=== PATIENT | male | born 1980 | race Hispanic/Latino ===

== ENCOUNTER 2018-03-09 01:56 | Emergency (ER) | payer SELFPAY ==
[~2018-03-09] VITALS: Ht 177.8 cm; Wt 90.7 kg
--- NOTE | 2018-03-09 02:52 | Diagnostic Imaging Report ---
EXAM: CT Abdomen and Pelvis WITHOUT contrast INDICATION: Dysuria, trouble urinating COMPARISON: None. TECHNIQUE: Abdomen and pelvis were scanned utilizing a multidetector helical scanner from the lung base to the pubic symphysis without administration of IV contrast. Absence of intravenous contrast decreases sensitivity for detection of focal lesions and vascular pathology. Coronal and sagittal reformations were obtained. Routine protocol was performed. IV CONTRAST: None. ORAL CONTRAST: Water RADIATION DOSE: Total DLP: 563.07 mGy*cm Estimated effective dose: (DLP x 0.015 x size factor) mSv COMPLICATIONS: None FINDINGS: LINES and TUBES: None. LOWER THORAX: Unremarkable HEPATOBILIARY: No focal hepatic lesions. No biliary ductal dilation. GALLBLADDER: No radio-opaque stones or sludge. No wall thickening. SPLEEN: Moderate splenomegaly. PANCREAS: No focal masses or ductal dilatation. ADRENALS: No adrenal nodules KIDNEYS/URETERS: No hydronephrosis. No cystic or solid mass lesions. Punctate 2 mm calcification in the inferior renal collecting system of the left kidney suspicious for nephrolithiasis best seen on series 2, image 32 GI TRACT: No abnormal distention, wall thickening, or evidence of bowel obstruction. Appendix is normal containing a few appendicoliths. PELVIC ORGANS/BLADDER: Unremarkable. Specifically, the bladder appears normal partially distended LYMPH NODES: No lymphadenopathy. VESSELS: There is mild atherosclerotic disease in the aorta and major arterial branches. PERITONEUM / RETROPERITONEUM: No free air or fluid. BONES: Unremarkable. SOFT TISSUES: Unremarkable. IMPRESSION: 1. No evidence of intra or extraperitoneal bladder rupture. 2. 2 mm stone in the inferior renal collecting system of the left kidney. 3. Signed by: Dr. Albaro Santos M.D. on 03/09/2018 2:48 AM
[2018-03-09 03:00] LABS: BILIRUBIN,URINE NEGATIVE (NEGATIVE); CLARITY,URINE CLEAR (CLEAR); COLOR,URINE YELLOW (YELLOW); KETONES,URINE 1+ (NEGATIVE); LEUKOCYTE ESTERASE ,URINE NEGATIVE (NEGATIVE); NITRITE,URINE NEGATIVE (NEGATIVE); PROTEIN,URINE DIPSTICK 1+ (NEGATIVE); URINE UROBILINOGEN 1 mg/dL (0.2 - 1)
[2018-03-09 03:01] LABS: AMPHETAMINES SCREEN,URINE POSITIVE (NEGATIVE); BENZODIAZEPINES SCREEN,URINE NEGATIVE (NEGATIVE); PHENCYCLIDINE SCREEN,URINE NEGATIVE (NEGATIVE)
[2018-03-09 03:02] LABS: BACTERIA,URINE RARE /HPF; MUCUS,URINE MANY (RARE); RBC,URINE 0-5 /HPF (0-5)
== END 2018-03-09 03:20 | disposition home or self-care (01) ==
LOC: ER 01:56
DX: R30.0 Dysuria (principal); F14.90 Cocaine use, unspecified, uncomplicated; F12.90 Cannabis use, unspecified, uncomplicated; F15.90 Other stimulant use, unspecified, uncomplicated; F17.210 Nicotine dependence, cigarettes, uncomplicated
CPT/HCPCS: 74176; 80307; 81001; 99282